=== PATIENT | male | born 1955 | race Caucasian/White ===

== ENCOUNTER 2016-10-24 06:39 | Day surgery (SDC) | END 2016-10-24 09:39 | disposition home or self-care (01) | DX: Z12.11 Encounter for screening for malignant neoplasm of colon (principal); D12.3 Benign neoplasm of transverse colon; K63.5 Polyp of colon; I10 Essential (primary) hypertension; E11.9 Type 2 diabetes mellitus without complications | CPT/HCPCS: 45378; 82962; 88305; Z7610 ==

== ENCOUNTER 2017-06-27 07:03 | Day surgery (SDC) | payer OTHER ==
[~2017-06-27] VITALS: Ht 167.6 cm; Wt 99.8 kg
[~2017-06-27 07:03] MED LIST: ALBU18HF INHALATION; ASPI-664 PO; ATOR80TA75 PO; BECL8.7A5 INH; BUPR100T7 PO; CARV25TA79 PO; CLOP75TA27 PO; FLUT9.9S NASAL; LOSA25TA5 PO; METF500T4 PO; SPIR25TA PO; TAMS-14 PO
[2017-06-27] MEDS ORDERED: NITROGLYCERIN (IC) 100 MCG/ML INJ ONE (07:52)
[2017-06-27] MEDS ORDERED: MIDAZOLAM 1 MG/ML 2 ML INJ ONE ×2 (07:52→08:38)
[2017-06-27] MEDS ORDERED: LIDOCAINE 1% (MDV) 20 ML INJ ONE (07:52)
[2017-06-27] MEDS ORDERED: HEPARIN 1000 UNITS/ML 10 ML INJ ONE (07:52)
[2017-06-27] MEDS ORDERED: FENTAnyl 50 MCG/ML VIAL ONE ×2 (07:52→08:39)
[2017-06-27 08:22] VITALS: Ht 167.6 cm; Wt 99.8 kg
[2017-06-27 08:24] VITALS: BP 126/67; PULSE 72; RESP 18
[2017-06-27] MEDS ORDERED: DIPHENHYDRAMINE 50 MG INJ ONE (08:31)
[2017-06-27] MEDS ORDERED: METHYLPREDNISOLONE 125 MG INJ ONE (08:31)
[2017-06-27] MEDS ORDERED: morphine 10 MG INJ ONE (10:01)
[2017-06-27] MEDS ORDERED: CLOPIDOGREL 300 MG TAB ONE (11:02)
[2017-06-27] MEDS ORDERED: SOD CHLORIDE 0.9% 1,000 ML IV SCH (11:05)
--- NOTE | 2017-06-27 11:14 | SIPON ---
Date/Time of Note Date/Time of Note DATE: 06/27/17 TIME: 11:09 Operative Report Preoperative Diagnosis Severe RLE claudication w/ severe PVD Postoperative Diagnosis Same Operation/Procedure Performed 1) Aortogram 2) Right leg angiogram/runoff 3) Atherectomy of R SFA long segment total occlusion 4) Angioplasty R SFA with drug-coated balloons Surgeon Jaron Lawson MD portfolio assistant None Anesthesia: moderate sedation Estimated blood loss: minimal Transfusion Required none Specimen None Grafts/Implants none Complications none JARON LAWSON MD Jun 27, 2017 11:13
[2017-06-27 11:18] VITALS: BP 105/71; PULSE 60; RESP 14
[2017-06-27 11:23] VITALS: BP 120/59; PULSE 74; RESP 14
[2017-06-27 11:28] VITALS: BP 112/61; PULSE 68; RESP 14
[2017-06-27] MEDS ORDERED: ACETAMINOPHEN 325 MG TAB PO PRN (11:30)
[2017-06-27] MEDS ORDERED: ONDANSETRON 4 MG INJ IV PRN (11:30)
[2017-06-27 11:40] VITALS: BP 129/60; PULSE 77; RESP 18
[2017-06-27 15:00] VITALS: BP 127/75; PULSE 109; RESP 18
--- NOTE | 2017-06-28 06:14 | OPR ---
DATE OF OPERATION: 06/27/2017 PREOPERATIVE DIAGNOSIS: Severe right lower extremity claudication with severe known peripheral vascular disease. POSTOPERATIVE DIAGNOSIS: Severe right lower extremity claudication with severe known peripheral vascular disease. PROCEDURE: 1. Aortogram. 2. Right lower extremity angiogram with run off, 3rd order. 3. Atherectomy of right superficial femoral artery long segment occlusions. 4. Angioplasty with drug coated balloons to entire right superficial femoral artery. SURGEON: Hiro Phan M.D. ANESTHESIA: Moderate sedation and local. ESTIMATED BLOOD LOSS: Minimal. COMPLICATIONS: None. SPECIMENS: None. PREOPERATIVE INDICATIONS: This is a 61-year-old gentleman with diabetes and coronary artery disease and hypertension with known severe peripheral vascular disease. He has a history of bilateral lower extremity claudication and is status post left lower extremity angiogram with intervention in the past. He has persistent severe right lower extremity claudication that limits his daily activities. He has known SFA occlusions on the right. He now presents for angiogram with possible intervention. The indications, risks and benefits of the procedure were discussed with the patient, who understood and agreed to proceed. ANGIOGRAPHIC FINDINGS: 1. Small and diffusely diseased, but patent infrarenal aorta with a right sided eccentric plaque that was not flow limiting. 2. Patent, but diffusely diseased/calcified common iliac, internal iliac, and external iliac arteries. 3. Patent right common femoral artery with a patent enlarged profunda femoral artery. 4. There is total occlusion of the right superficial femoral artery, shortly after its origin. The most proximal segment was a very small caliber. There is brief constitution distally at around the adductor via collaterals of distal SFA/above knee popliteal artery. 5. The right popliteal artery is otherwise patent with some disease. 6. There is a 3-vessel run off into the lower leg with a patent anterior tibial artery that continues to the foot as the dorsalis pedis and this is the dominant outflow. 7. The posterior tibial artery and TP trunk are patent and the posterior tibial artery continues to the foot as the plantar artery that is diseased. The peritoneal artery is patent, but is diminished up to the ankle. Post intervention angiography demonstrated anabaptist of inline flow throughout the right superficial artery and no distal complications. PROCEDURE: The patient was properly identified, brought to the angiography suite and placed in the supine position. The patient's bilateral groins were prepped and draped in the usual sterile fashion. He was administered moderate sedation as needed throughout the procedure. Using an ultrasound, the left femoral artery was evaluated. It was noted to be markedly calcified, but patent. Local anesthesia was injected into the skin and subcutaneous tissue overlying the left common femoral artery. Ultrasound guidance was used to access the common femoral artery with a micropuncture needle the micropuncture wire was then advanced into the left iliac system under fluoroscopy. An 11 blade scalpel was used to create a skin viviana at the access site and hemostasis was used to help dilate or track given the marked amount of adipose tissue. A micropuncture sheath was then exchanged. An 0.035 Bentson wire was then advanced into the infrarenal aorta under fluoroscopy. This was followed by a flush catheter. An aortogram was then performed with the findings as above. The Bentson wire was then advanced; however, it was unable to select the right iliac system. Therefore it was exchanged for an 0.035 floppy glidewire. This along with the combination of the flush catheter were used to select the right iliac system. The flush catheter was then advanced into the right external iliac artery. Right lower extremity angiogram was performed with the findings as above. Given the findings, intervention was planned. An 0.035 Advantage stiff wire was then advanced through the flush catheter. The flush catheter and the sheath were then removed and a 6-Slovenian x 45 cm long sheath was then advanced. The sheath was placed at the proximal common femoral artery, 9,000 units of intravenous heparin was then administered. Using a combination of a floppy glidewire and an angled glide catheter, the superficial femoral artery occlusions were crossed. The glide catheter would not advance in the distal portion of the SFA and thus that was exchanged for an 0.035 Chandler catheter. This crossed the distal lesions and the catheter was eventually placed in the popliteal artery. Angiography confirmed presence of the catheter in the true lumen. Next, the 0.014 support wire was then advanced. This was a nonhydrophilic wire. The wire was placed into the popliteal artery. The catheter was then removed and the 2.2 [place] atherectomy device was prepped and advanced over the wire to the proximal superficial femoral artery. Atherectomy was then performed throughout the entire superficial femoral artery. However, initially the device would not cross the most distal lesion, thus the device was removed and a 3 mm x 60 mm angioplasty balloon was advanced to this area. This was used for predilation of the lesion. Afterwards the atherectomy device was then readvanced and at this time was able to atherectomize the entire area into the proximal popliteal artery passed the adductor. Next, multiple drug coated balloons were used for angioplasty of the atherectomized areas. These were 5 mm balloons of the following lengths, 60 mm, 100 mm and 120 mm. The balloons were insufflated per the manufacture recommendations nominal pressure for 3 minutes. After angioplasty, angiogram was then performed. This demonstrated marked improvement in lumen diameter and flow throughout the entire superficial femoral artery. There was anabaptist of inline flow without any evidence of distal embolization or complications. There was one noted focal dissection flap at the mid/distal SFA that was not flow limiting. Given these findings a decision was made to stop the procedure here. The wire was removed and an 0.035 wire was then readvanced through the sheath and the sheath was retracted over the wire and the wire was eventually placed in the intrarenal aorta. The long sheath was then exchanged for a short 6-Slovenian sheath and angiogram of the left of the left groin access site demonstrated that it was amenable to a closure device. Therefore, the sheath was exchanged for a 6-Slovenian Angio- Seal closure device. This was deployed with good hemostasis. Additional manual compression was applied for added hemostasis. The patient tolerated the procedure well without any immediate complications. He was transferred to recovery in good condition. Dictated By: Hiro Phan M.D. /[email or web address]/[email or web address] /Document#: [id number]
== END 2017-06-27 15:00 | disposition home or self-care (01) ==
LOC: SDS 07:03
PROVIDERS: ATTEND Surgery
DX: I70.211 Atherosclerosis of native arteries of extremities with intermittent claudication, right leg (principal); E11.9 Type 2 diabetes mellitus without complications; I10 Essential (primary) hypertension; I25.10 Atherosclerotic heart disease of native coronary artery without angina pectoris; E78.5 Hyperlipidemia, unspecified; I25.2 Old myocardial infarction; Z87.891 Personal history of nicotine dependence; Z79.82 Long term (current) use of aspirin; Z79.84 Long term (current) use of oral hypoglycemic drugs
CPT/HCPCS: 37225; 75630; 82962; C1725; C1769; C1887; C1894; J1200; J1644; J2250; J2270; J2930; J3010; Z7610

== ENCOUNTER 2018-06-26 05:30 | Day surgery (SDC) | END 2018-06-26 13:41 | disposition home or self-care (01) ==